=== PATIENT | female | born 1975 | race Two or more races ===

== ENCOUNTER 2025-01-17 17:43 | Emergency (ER) | payer OTHER ==
[~2025-01-17] VITALS: Ht 157.5 cm; Wt 122.5 kg
[2025-01-17 20:16] LABS: BASO % 0.2 % (0.1-1.2); EOS # 0.15 (0.04-0.54); EOS % 1.6 % (0.7-7.0); LYMPH # 1.81 (1.18-3.74); LYMPH % 19.4 % (19.3-53.1); MEAN PLATELET VOLUME 10.10 fl (9.4-12.4); MONO # 0.72 (0.24-0.82); MONO % 7.7 % (4.7-12.5); NEUT # 6.63 (1.56-6.13); NEUT % 71.0 % (34.0-71.1); RED CELL DISTRIBUTION WIDTH 14.6 % (11.6-14.4)
[2025-01-17 20:49] LABS: ALT/SGPT 30.0 U/L (12-78); AST/SGOT 20.0 U/L (15-37); BILIRUBIN TOTAL 0.83 mg/dL (0.3-1.2); BUN CREA RATIO 14.0 (7.0-25.0); CREATININE SERUM 0.91 mg/dL (0.55-1.02); GFR 65.43; GLOBULINA 3.9 G/DL (2.4-3.5); GLUCOSE FASTING 98.0 mg/dL (65-100); OSMOLALITY SERUM 279.0 MOSM/KG (275-295)
[2025-01-18] MEDS ORDERED: IBUPROFEN600 MG PO (00:36)
[2025-01-18] MEDS ORDERED: ONDANSETRON ODT4 MG PO (00:36)
[2025-01-18] MEDS ORDERED: LEVSIN0.125 MG PO (00:36)
[2025-01-18] MEDS ORDERED: DICY20TA PO (00:48)
== END 2025-01-18 01:59 | disposition home or self-care (01) ==
LOC: ER 17:43
PROVIDERS: Preventive Medicine Public Health & General Preventive Medicine
DX: K80.18 Calculus of gallbladder with other cholecystitis without obstruction (principal); Z91.012 Allergy to eggs

== ENCOUNTER 2025-03-20 08:00 | Day surgery (SDC) | payer OTHER ==
[2025-03-12 08:49] VITALS: BP 134/82
[2025-03-12 08:59] LABS: BASO % 0.4 % (0.1-1.2); EOS # 0.20 (0.04-0.54); EOS % 3.7 % (0.7-7.0); LYMPH # 1.08 (1.18-3.74); LYMPH % 19.8 % (19.3-53.1); MEAN PLATELET VOLUME 10.10 fl (9.4-12.4); MONO # 0.39 (0.24-0.82); MONO % 7.2 % (4.7-12.5); NEUT # 3.75 (1.56-6.13); NEUT % 68.7 % (34.0-71.1); RED CELL DISTRIBUTION WIDTH 14.3 % (11.6-14.4)
[2025-03-12 09:28] LABS: INR 1.04
[2025-03-12 10:00] LABS: ALT/SGPT 38.0 U/L (12-78); AST/SGOT 23.0 U/L (15-37); BILIRUBIN TOTAL 0.99 mg/dL (0.3-1.2); BUN CREA RATIO 12.0 (7.0-25.0); CREATININE SERUM 0.74 mg/dL (0.55-1.02); GFR 82.74; GLOBULINA 4.0 G/DL (2.4-3.5); GLUCOSE FASTING 86.0 mg/dL (65-100); OSMOLALITY SERUM 283.0 MOSM/KG (275-295)
[2025-03-12 13:30] LABS: URINE APPEARANCE Clear; URINE BILIRRUBIN Negative (NEGATIVE); URINE BLOOD Small; URINE COLOR Yellow; URINE GLUCOSE Negative (NEGATIVE); URINE KETONE Negative (NEGATIVE); URINE LEUKOCYTE Trace; URINE NITRATE Negative; URINE PROTEIN Negative (NEGATIVE); URINE UROBILINOGEN 0.2 E.U./dl
[2025-03-12 13:31] LABS: URINE BACTERIA 1063.0 uL (0.0-1933); URINE EPITHELIAL CELLS 30.4 uL (0.0-38.8); URINE RBC 36.5 uL (0.0-20.8); URINE WBC 31.2 uL (0.0-23.2)
[2025-03-12 13:32] LABS: URINE CAST 0.14 uL (0.0-1.40)
[~2025-03-20] VITALS: Ht 157.5 cm; Wt 117.9 kg
[~2025-03-20 08:00] MED LIST: BUPIVACAINE HCL/MPF 0.5% 30ML VIAL ONE; CEFAZOLIN SODIUM 1,000 MG VIAL ONE; DICY20TA PO; IBUPROFEN600 MG PO; KETO10TA2 PO; LEVSIN0.125 MG; LEVSIN0.125 MG PO; LIDOCAINE HCL 1%/EPINEPHRINE 20ML VIAL IJ ONE; MIRALAX17 GM PO; ONDANSETRON ODT4 MG PO; POVIDONE-IODINE 118 ML BOTT TOP ONE; TRAMADOL HCL50 MG PO; TYLENOL ARTHRI650 MG PO
[2025-03-20] MEDS ORDERED: THROMBIN,HU/FIBRINOGEN/CALCIUM 10 ML SYRINGE TOP ONE (09:21)
[2025-03-20] MEDS ORDERED: VISTASEAL DUAL APPICATOR 1 EACH APPL TOP ONE (09:26)
[2025-03-20] MEDS ORDERED: SUGAMMADEX SODIUM 200 MG/2 ML VIAL IV ONE (09:29)
[2025-03-20] MEDS ORDERED: NEURONTIN300 MG PO (11:23)
== END 2025-03-20 12:35 | disposition home or self-care (01) ==
LOC: CIR.AMB 08:00
PROVIDERS: ATTEND Surgery
DX: K80.10 Calculus of gallbladder with chronic cholecystitis without obstruction (principal); K80.20 Calculus of gallbladder without cholecystitis without obstruction; Z91.0120 Allergy to eggs, unspecified